=== PATIENT | female | born 1985 | race Two or more races ===

== ENCOUNTER 2022-06-08 22:03 | Emergency (ER) | payer MEDICAID, OTHER ==
[~2022-06-08] VITALS: Ht 154.9 cm; Wt 88.2 kg
[2022-06-08 23:06] VITALS: BP 151/82
[2022-06-09] MEDS ORDERED: IBUP800T26 PO (00:34)
[2022-06-09] MEDS ORDERED: FLUO0.054 TOP (00:34)
== END 2022-06-09 01:58 | disposition home or self-care (01) ==
LOC: ER 22:03
DX: S40.861A Insect bite (nonvenomous) of right upper arm, initial encounter (principal); M72.2 Plantar fascial fibromatosis; W57.XXXA Bitten or stung by nonvenomous insect and other nonvenomous arthropods, initial encounter; Y93.89 Activity, other specified; Y92.89 Other specified places as the place of occurrence of the external cause; Y99.8 Other external cause status